=== PATIENT | male | born 2000 | race Two or more races ===

== ENCOUNTER 2024-06-13 11:50 | Emergency (ER) | payer OTHER ==
[~2024-06-13] VITALS: Ht 162.6 cm; Wt 52.6 kg
[2024-06-13] MEDS ORDERED: ACETAMINOPHEN 500 MG GEL..CAP PO STA (12:47)
[2024-06-13] MEDS ORDERED: ACETAMINOPHEN 500 MG GEL..CAP PO ONE (13:19)
== END 2024-06-13 14:26 | disposition home or self-care (01) ==
LOC: ER 11:51
DX: M25.562 Pain in left knee (principal); Z88.6 Allergy status to analgesic agent

== ENCOUNTER → 2025-04-21 | Emergency (ER) | payer OTHER ==
[~2025-04-21] VITALS: Ht 165.1 cm; Wt 57.6 kg
[~2025-04-21] MED LIST: NEOMYCIN/POLYMYXIN B/HYDROCORT 20 DR/ML BOTTLE OT STA
== END | disposition left against medical advice (07) ==
LOC: ER 13:06
DX: Z53.21 Procedure and treatment not carried out due to patient leaving prior to being seen by health care provider (principal)